=== PATIENT | female | born 1975 | race Caucasian/White ===

== ENCOUNTER → 2019-01-01 | Outpatient (CLI) | payer MEDICARE ==
--- NOTE | 2019-01-01 09:54 | Diagnostic Imaging Report ---
EXAM: US ABDOMEN COMPLETE DATE: 01/01/2019 8:42 AM INDICATION: Abdominal pain COMPARISON: None TECHNIQUE: Transverse and longitudinal berry scale and color doppler sonographic images of the upper abdomen were obtained. FINDINGS: There is no evidence of fluid or masses seen in the area of clinical concern in the right lower quadrant. LIVER 14.6 cm in the right midclavicular line. Mildly increased echogenicity of the liver with normal contour, no masses. SPLEEN 11.2 cm in maximum diameter. Normal echogenicity, no masses. GALLBLADDER No gallbladder wall thickening, distension, stone, or pericholecystic fluid. NEgative reported sonographic Gordon's sign. Gallbladder wall measures 2 mm. BILE DUCTS No intra nor extra-hepatic biliary dilation. Common bile duct measures 4 mm PANCREAS: Visualized portions are normal. RIGHT KIDNEY: 10.0 cm Echogenicity: Normal Collecting System: No hydronephrosis Stones: None Cyst/Mass: None LEFT KIDNEY: 11.5 cm Echogenicity: Normal Collecting System: No hydronephrosis Stones: None Cyst/Mass: None VESSELS: Aorta: Visualized portions are within normal size limits Inferior Vena Cava: Visualized portions are normal Main Portal Vein: 0.8 cm, normal size with hepatopetal flow. FREE FLUID: None IMPRESSION: Unremarkable abdominal ultrasound. Signed by: Elise Morales MD on 01/01/2019 9:51 AM
== END ==
LOC: US 08:36
PROVIDERS: ATTEND Internal Medicine Gastroenterology
DX: R10.13 Epigastric pain (principal); E66.3 Overweight; Z71.3 Dietary counseling and surveillance
CPT/HCPCS: 76700

== ENCOUNTER → 2019-01-14 | Day surgery (SDC) | payer MEDICARE ==
[~2019-01-14] MED LIST: FENTANYL CITRATE/PF 100MCG/2 ML INJ ONE; GABAPENTIN300 MG PO; IBUPROFEN400 MG PO; MIDAZOLAM HCL 2 MG/2 ML VIAL ONE; OMEPRAZOLE40 MG PO; PROPOFOL IV EMULSION 10 MG/ML 50 ML VIAL ONE; TIZANIDINE HCL4 MG PO
--- OUTSIDE RECORDS SUMMARY | 2019-01-14 06:41 | XMS REPORT ---
Author [facility] Address Unknown Phone Unavailable Care Team Providers Care Electrical Controls Assembler Name Role Phone Julianna PALACIOS Unavailable Unavailable Payers Payer Name Policy Type Policy Number Effective Date Expiration Date Problems This patient has no known problems. Allergies, Adverse Reactions, Alerts Allergy Name Allergy Type Status Severity Reaction(s) Onset Date Inactive Date Treating Clinician Comments No Known Allergies DA Active U 2018-09-09 00:00:00 No Known Allergies DA Active U 2018-03-10 00:00:00 No Known Allergies DA Active U 2016-01-24 00:00:00 Medications This patient has no known medications. Results Test Description Test Time Test Comments Text Results Atomic Results Result Comments US ABDOMEN COMPLETE 2019-01-01 09:50:00 [facility] [address] [place] [address] Patient Name: STEVE NOLAND MR #: [id number] : 1975 Age/Sex: 43/F Req #: [id number] Adm Physician: Ordered by: NOREEN PALACIOS MD Report #: [id number] Location: US Room/Bed: Procedure: [id number] US/US ABDOMEN COMPLETE Exam Date: 01/01/19 Exam Time: 0855 REPORT STATUS: Signed EXAM: US ABDOMEN COMPLETE DATE: 01/01/2019 8:42 AM INDICATION: Abdominal pain COMPARISON: None TECHNIQUE: Transverse and longitudinal berry scale and color doppler sonographic images of the upper abdomen were obtained. FINDINGS: There is no evidence of fluid or masses seen in the area of clinical concern in the right lower quadrant. LIVER 14.6 cm in the right midclavicular line. Mildly increased echogenicity of the liver with normal contour, no masses. SPLEEN 11.2 cm in maximum diameter. Normal echogenicity, no masses. GALLBLADDER No gallbladder wall thickening, distension, stone, or pericholecystic fluid. NEgative reported sonographic Gordon's sign. Gallbladder wall measures 2 mm. BILE DUCTS No intra nor extra-hepatic biliary dilation. Common bile duct measures 4 mm PANCREAS: Visualized portions are normal. RIGHT KIDNEY: 10.0 cm Echogenicity: Normal Collecting System: No hydronephrosis Stones: None Cyst/Mass: None LEFT KIDNEY: 11.5 cm Echogenicity: Normal Collecting System: No hydronephrosis Stones: None Cyst/Mass: None VESSELS: Aorta: Visualized portions are within normal size limits Inferior Vena Cava: Visualized portions are normal Main Portal Vein: 0.8 cm, normal size with hepatopetal flow. FREE FLUID: None IMPRESSION: Unremarkable abdominal ultrasound. Signed by: Bon Rouse MD on 01/01/2019 9:51 AM Dictated By: BON ROUSE MD 0 Transcribed By: YADIRA on 01/01/19950 COPY TO: NOREEN PALACIOS MD BASIC METABOLIC PANEL 2018-09-29 23:40:00 SODIUM (test code=NA) 141 mmol/L 136-145 POTASSIUM (test code=K) 3.6 mmol/L 3.5-5.1 CHLORIDE (test code=CL) 105.0 mmol/L 98-107 CARBON DIOXIDE (test code=CO2) 30.0 mmol/L 21-32 ANION GAP (test code=GAP) 9.6 10-20 GLUCOSE (test code=GLU) 122 mg/dL 74-106 BLOOD UREA NITROGEN (test code=BUN) 6 mg/dL 7-18 GLOMERULAR FILTRATION RATE (test code=GFR) > 60 mL/min >=60 Estimated GFR by using Modified MDRD formula.Chronic kidney disease is defined as either kidney damageor GFR <60 mL/min/1.73 m2 for >3 months. CREATININE (test code=CREAT) 0.90 mg/dL 0.55-1.02 Note change in reference range due to change in reagent. BUN/CREATININE RATIO (test code=BUN/CREA) 6.7 10-20 CALCIUM (test code=CA) 8.9 mg/dL 8.5-10.1 HEPATIC FUNCTION [id number] 23:40:00* Test Item Value Reference Range Comments TOTAL PROTEIN (test code=PROT) 7.1 gram/dL 6.4-8.2 ALBUMIN (test code=ALB) 3.9 g/dL 3.4-5.0 GLOBULIN (test code=GLOB) 3.2 gram/dL 2.7-4.2 ALBUMIN/GLOBULIN RATIO (test code=A/G) 1.2 0.75-1.50 BILIRUBIN TOTAL (test code=BILT) 0.80 mg/dL 0.0-1.0 BILIRUBIN DIRECT (test code=BILD) 0.19 mg/dL 0.0-0.20 SGOT/AST (test code=AST) 11 IUnit/L 15-37 SGPT/ALT (test code=ALT) 21 IUnit/L 12-78 ALKALINE PHOSPHATASE TOTAL (test code=ALKP) 66 IUnit/L 45-117 Note change in reference range due to change in reagent. [id number] 23:40:00* Test Item Value Reference Range Comments LIPASE (test code=LIP) 139 U/L 73.0-393.0 HCG SERUM [id number] 23:40:00* Test Item Value Reference Range Comments HCG SERUM QUAL (test code=HCGQL) NEGATIVE NEGATIVE This HCGQL test is NOT applicable for MALE patients.Check with nurse about probable order error.If Tumor Marker Test needed, nurse should order test "HCGTU"(Test #550.93173) BASIC METABOLIC [id number] 23:32:00* Test Item Value Reference Range Comments SODIUM (test code=NA) 141 mmol/L 136-145 POTASSIUM (test code=K) 3.6 mmol/L 3.5-5.1 CHLORIDE (test code=CL) 105.0 mmol/L 98-107 CARBON DIOXIDE (test code=CO2) mmol/L 21-32 ANION GAP (test code=GAP) 10-20 GLUCOSE (test code=GLU) mg/dL 74-106 BLOOD UREA NITROGEN (test code=BUN) mg/dL 7-18 GLOMERULAR FILTRATION RATE (test code=GFR) mL/min >=60 CREATININE (test code=CREAT) mg/dL 0.55-1.02 BUN/CREATININE RATIO (test code=BUN/CREA) 10-20 CALCIUM (test code=CA) mg/dL 8.5-10.1 HEPATIC FUNCTION [id number] 23:32:00* Test Item Value Reference Range Comments TOTAL PROTEIN (test code=PROT) gram/dL 6.4-8.2 ALBUMIN (test code=ALB) g/dL 3.4-5.0 GLOBULIN (test code=GLOB) gram/dL 2.7-4.2 ALBUMIN/GLOBULIN RATIO (test code=A/G) 0.75-1.50 BILIRUBIN TOTAL (test code=BILT) mg/dL 0.0-1.0 BILIRUBIN DIRECT (test code=BILD) mg/dL 0.0-0.20 SGOT/AST (test code=AST) IUnit/L 15-37 SGPT/ALT (test code=ALT) IUnit/L 12-78 ALKALINE PHOSPHATASE TOTAL (test code=ALKP) IUnit/L 45-117 [id number] 23:32:00* Test Item Value Reference Range Comments LIPASE (test code=LIP) U/L 73.0-393.0 HCG SERUM [id number] 23:32:00* Test Item Value Reference Range Comments HCG SERUM QUAL (test code=HCGQL) NEGATIVE NEGATIVE This HCGQL test is NOT applicable for MALE patients.Check with nurse about probable order error.If Tumor Marker Test needed, nurse should order test "HCGTU"(Test #550.05613) BASIC METABOLIC [id number] 23:26:00* Test Item Value Reference Range Comments SODIUM (test code=NA) 141 mmol/L 136-145 POTASSIUM (test code=K) 3.6 mmol/L 3.5-5.1 CHLORIDE (test code=CL) 105.0 mmol/L 98-107 CARBON DIOXIDE (test code=CO2) mmol/L 21-32 ANION GAP (test code=GAP) 10-20 GLUCOSE (test code=GLU) mg/dL 74-106 BLOOD UREA NITROGEN (test code=BUN) mg/dL 7-18 GLOMERULAR FILTRATION RATE (test code=GFR) mL/min >=60 CREATININE (test code=CREAT) mg/dL 0.55-1.02 BUN/CREATININE RATIO (test code=BUN/CREA) 10-20 CALCIUM (test code=CA) mg/dL 8.5-10.1 HEPATIC FUNCTION [id number] 23:26:00* Test Item Value Reference Range Comments TOTAL PROTEIN (test code=PROT) gram/dL 6.4-8.2 ALBUMIN (test code=ALB) g/dL 3.4-5.0 GLOBULIN (test code=GLOB) gram/dL 2.7-4.2 ALBUMIN/GLOBULIN RATIO (test code=A/G) 0.75-1.50 BILIRUBIN TOTAL (test code=BILT) mg/dL 0.0-1.0 BILIRUBIN DIRECT (test code=BILD) mg/dL 0.0-0.20 SGOT/AST (test code=AST) IUnit/L 15-37 SGPT/ALT (test code=ALT) IUnit/L 12-78 ALKALINE PHOSPHATASE TOTAL (test code=ALKP) IUnit/L 45-117 [id number] 23:26:00* Test Item Value Reference Range Comments LIPASE (test code=LIP) U/L 73.0-393.0 HCG SERUM [id number] 23:26:00* Test Item Value Reference Range Comments HCG SERUM QUAL (test code=HCGQL) NEGATIVE URINALYSIS [id number] 23:22:00* Test Item Value Reference Range Comments UA COLOR (test code=COLU) YELLOW YELLOW UA APPEARANCE (test code=APPU) CLEAR CLEAR UA GLUCOSE DIPSTICK (test code=DGLUU) NEGATIVE mg/dL NEGATIVE UA BILIRUBIN DIPSTICK (test code=BILU) NEGATIVE mg/dL NEGATIVE UA KETONE DIPSTICK (test code=KETU) NEGATIVE mg/dL NEGATIVE UA SPECIFIC GRAVITY (test code=SGU) 1.015 1.001-1.035 UA BLOOD DIPSTICK (test code=VERONIQUE) 0.06 mg/dL (1+) mg/dL NEGATIVE UA PH DIPSTICK (test code=FELIPE) 5.0 5.0-8.0 UA PROTEIN DIPSTICK (test code=PROU) NEGATIVE mg/dL NEGATIVE UA UROBILINIOGEN DIPSTICK (test code=URO) Normal mg/dL NEGATIVE UA NITRITE DIPSTICK (test code=SANTHOSH) NEGATIVE NEGATIVE UA LEUKOCYTE ESTERASE W REFLEX (test code=LEUUR) NEGATIVE Lauren/uL NEGATIVE UA WBC (test code=WBCU) 0-5 per HPF 0-5 UA RBC (test code=RBCU) 0-2 #/HPF 0-5 UA EPITHELIAL CELLS (test code=EPIU) FEW per HPF FEW UA BACTERIA (test code=BACU) NONE SEEN #/HPF NONE UA HYALINE CAST (test code=HYALU) 3-5 #/LPF 0-5 UA MUCUS (test code=MUCU) FEW #/LPF FEW Urine Source? Clean CatchCBC W/O [id number] 23:22:00* Test Item Value Reference Range Comments WHITE BLOOD CELL (test code=WBC) 12.7 K/mm3 4.5-12.5 RED BLOOD CELL (test code=RBC) 4.21 mill/mm3 3.7-5.2 HEMOGLOBIN (test code=HGB) 15.2 gram/dL 11.5-15.5 HEMATOCRIT (test code=HCT) 44.8 % 36.0-46.0 MEAN CELL VOLUME (test code=MCV) 106.4 fL 80-98 MEAN CELL HGB (test code=MCH) 36.1 picogram 27.0-33.0 MEAN CELL HGB CONCETRATION (test code=MCHC) 33.9 gram/dL 33.0-36.0 RED CELL DISTRIBUTION WIDTH (test code=RDW) 13.4 % 11.6-16.2 PLATELET COUNT (test code=PLT) 236 K/mm3 150-450 MEAN PLATELET VOLUME (test code=MPV) 8.8 fL 6.7-11.0 URINALYSIS [id number] 23:21:00* Test Item Value Reference Range Comments UA COLOR (test code=COLU) YELLOW YELLOW UA APPEARANCE (test code=APPU) CLEAR CLEAR UA GLUCOSE DIPSTICK (test code=DGLUU) NEGATIVE mg/dL NEGATIVE UA BILIRUBIN DIPSTICK (test code=BILU) NEGATIVE mg/dL NEGATIVE UA KETONE DIPSTICK (test code=KETU) NEGATIVE mg/dL NEGATIVE UA SPECIFIC GRAVITY (test code=SGU) 1.015 1.001-1.035 UA BLOOD DIPSTICK (test code=VERONIQUE) 0.06 mg/dL (1+) mg/dL NEGATIVE UA PH DIPSTICK (test code=FELIPE) 5.0 5.0-8.0 UA PROTEIN DIPSTICK (test code=PROU) NEGATIVE mg/dL NEGATIVE UA UROBILINIOGEN DIPSTICK (test code=URO) Normal mg/dL NEGATIVE UA NITRITE DIPSTICK (test code=SANTHOSH) NEGATIVE NEGATIVE UA LEUKOCYTE ESTERASE W REFLEX (test code=LEUUR) NEGATIVE Lauren/uL NEGATIVE UA WBC (test code=WBCU) per HPF 0-5 UA RBC (test code=RBCU) per HPF 0-5 UA EPITHELIAL CELLS (test code=EPIU) per HPF Few UA BACTERIA (test code=BACU) per HPF NONE Urine Source? Clean CatchCBC W/O [id number] 23:20:00* Test Item Value Reference Range Comments WHITE BLOOD CELL (test code=WBC) K/mm3 4.5-12.5 RED BLOOD CELL (test code=RBC) mill/mm3 3.7-5.2 HEMOGLOBIN (test code=HGB) 15.2 gram/dL 11.5-15.5 HEMATOCRIT (test code=HCT) 44.8 % 36.0-46.0 MEAN CELL VOLUME (test code=MCV) fL 80-98 MEAN CELL HGB (test code=MCH) picogram 27.0-33.0 MEAN CELL HGB CONCETRATION (test code=MCHC) gram/dL 33.0-36.0 RED CELL DISTRIBUTION WIDTH (test code=RDW) % 11.6-16.2 PLATELET COUNT (test code=PLT) K/mm3 150-450 MEAN PLATELET VOLUME (test code=MPV) fL 6.7-11.0 - CT HEAD/BRAIN W/O [id number] 23:15:00 Name: STEVE NOLAND [facility] : 1975 Age/S: 42 / F [address] [facility]: [id number] Loc: [place] [address] Phys: Osmin Long DO Acct: [id number] Dis Date: Status: REG ER PHONE #: [phone] Exam Date: 09/29/2018 2308 FAX #: [phone] Reason: headache EXAMS: CPT CODE: [id number] CT HEAD/BRAIN W/O CONT [id number] CT SCAN OF THE HEAD WITHOUT CONTRAST Dictation Location: N13 CLINICAL HISTORY: Headache R 51 TECHNIQUE: Helical CT was performed from the skull base to the vertex without IV contrast using 5mm slice thicknesses. Exam was performed within 24 hours of the patient's arrival to the facility. Coronal and sagittal images were reconstructed. Exam performed without IV contrast has limited sensitivity for detection of soft tissue mass or inflammation. This exam was performed according to our departmental dose optimization program, which includes automated exposure control, adjustment of the mA and/ or KV according to patient size and/or use of iterative reconstruction technique. DLP 695 mGy*cm Compar juany study December 26, 2015 FINDINGS: The visualized sinuses are clear. The visualized bony structures are normal. There is no eviden ce of epidural, subdural, or intraparenchymal hematoma. Th ere is no evidence of mass, mass effect, fluid collection, hemorrhage, or evolving infarction. IMPRESSION: Normal CT of the hea d without contrast. Electronically Signed by Tori Nye M.D. on at 2815 Reported and signed by: Tori Alcantar CC: Osmin Long DO Technolo gist:NIK OTT, RT(R) CT CTDI: DLP: Trnscb Date/Time: 09/29/2018 (7839) Ashley.[email or web address] Orig Print D/T: S: 09/29/2018 (9659) PAGE 1 Signed Report B-TYPE NATRIURETIC [id number] 21:02:00* Test Item Value Reference Range Comments B-TYPE NATRIURETIC PEPTIDE (test code=BNP) 6.71 pgram/mL 0-100 URINALYSIS [id number] 20:55:00* Test Item Value Reference Range Comments UA COLOR (test code=COLU) Light-Yellow YELLOW UA APPEARANCE (test code=APPU) CLEAR CLEAR UA GLUCOSE DIPSTICK (test code=DGLUU) NEGATIVE mg/dL NEGATIVE UA BILIRUBIN DIPSTICK (test code=BILU) NEGATIVE mg/dL NEGATIVE UA KETONE DIPSTICK (test code=KETU) NEGATIVE mg/dL NEGATIVE UA SPECIFIC GRAVITY (test code=SGU) 1.009 1.001-1.035 UA BLOOD DIPSTICK (test code=VERONIQUE) 0.03 mg/dL (Trace) mg/dL NEGATIVE UA PH DIPSTICK (test code=FELIPE) 5.5 5.0-8.0 UA PROTEIN DIPSTICK (test code=PROU) NEGATIVE mg/dL NEGATIVE UA UROBILINIOGEN DIPSTICK (test code=URO) Normal mg/dL NEGATIVE UA NITRITE DIPSTICK (test code=SANTHOSH) NEGATIVE NEGATIVE UA LEUKOCYTE ESTERASE W REFLEX (test code=LEUUR) NEGATIVE Lauren/uL NEGATIVE UA WBC (test code=WBCU) 0-5 per HPF 0-5 UA RBC (test code=RBCU) 0-2 #/HPF 0-5 UA EPITHELIAL CELLS (test code=EPIU) FEW per HPF FEW UA BACTERIA (test code=BACU) NONE SEEN #/HPF NONE UA MUCUS (test code=MUCU) FEW #/LPF FEW Urine Source? Clean CatchBASIC METABOLIC [id number] 20:34:00* Test Item Value Reference Range Comments SODIUM (test code=NA) 138 mmol/L 136-145 POTASSIUM (test code=K) 3.4 mmol/L 3.5-5.1 CHLORIDE (test code=CL) 101.0 mmol/L 98-107 CARBON DIOXIDE (test code=CO2) 32.0 mmol/L 21-32 ANION GAP (test code=GAP) 8.4 10-20 GLUCOSE (test code=GLU) 85 mg/dL 74-106 BLOOD UREA NITROGEN (test code=BUN) 11 mg/dL 7-18 GLOMERULAR FILTRATION RATE (test code=GFR) > 60 mL/min >=60 Estimated GFR by using Modified MDRD formula.Chronic kidney disease is defined as either kidney damageor GFR <60 mL/min/1.73 m2 for >3 months. CREATININE (test code=CREAT) 0.80 mg/dL 0.55-1.02 Note change in reference range due to change in reagent. BUN/CREATININE RATIO (test code=BUN/CREA) 13.1 10-20 CALCIUM (test code=CA) 9.4 mg/dL 8.5-10.1 HCG SERUM [id number] 20:34:00* Test Item Value Reference Range Comments HCG SERUM QUAL (test code=HCGQL) NEGATIVE NEGATIVE This HCGQL test is NOT applicable for MALE patients.Check with nurse about probable order error.If Tumor Marker Test needed, nurse should order test "HCGTU"(Test #550.54469) [id number] 20:34:00* Test Item Value Reference Range Comments TROPONIN-I (test code=TROPI) <0.015 ng/mL 0-0.045 BASIC METABOLIC [id number] 20:30:00* Test Item Value Reference Range Comments SODIUM (test code=NA) 138 mmol/L 136-145 POTASSIUM (test code=K) 3.4 mmol/L 3.5-5.1 CHLORIDE (test code=CL) 101.0 mmol/L 98-107 CARBON DIOXIDE (test code=CO2) mmol/L 21-32 ANION GAP (test code=GAP) 10-20 GLUCOSE (test code=GLU) mg/dL 74-106 BLOOD UREA NITROGEN (test code=BUN) mg/dL 7-18 GLOMERULAR FILTRATION RATE (test code=GFR) mL/min >=60 CREATININE (test code=CREAT) mg/dL 0.55-1.02 BUN/CREATININE RATIO (test code=BUN/CREA) 10-20 CALCIUM (test code=CA) 9.4 mg/dL 8.5-10.1 HCG SERUM [id number] 20:30:00* Test Item Value Reference Range Comments HCG SERUM QUAL (test code=HCGQL) NEGATIVE NEGATIVE This HCGQL test is NOT applicable for MALE patients.Check with nurse about probable order error.If Tumor Marker Test needed, nurse should order test "HCGTU"(Test #550.60800) [id number] 20:30:00* Test Item Value Reference Range Comments TROPONIN-I (test code=TROPI) ng/mL 0-0.045 BASIC METABOLIC [id number] 20:25:00* Test Item Value Reference Range Comments SODIUM (test code=NA) 138 mmol/L 136-145 POTASSIUM (test code=K) 3.4 mmol/L 3.5-5.1 CHLORIDE (test code=CL) 101.0 mmol/L 98-107 CARBON DIOXIDE (test code=CO2) mmol/L 21-32 ANION GAP (test code=GAP) 10-20 GLUCOSE (test code=GLU) mg/dL 74-106 BLOOD UREA NITROGEN (test code=BUN) mg/dL 7-18 GLOMERULAR FILTRATION RATE (test code=GFR) mL/min >=60 CREATININE (test code=CREAT) mg/dL 0.55-1.02 BUN/CREATININE RATIO (test code=BUN/CREA) 10-20 CALCIUM (test code=CA) 9.4 mg/dL 8.5-10.1 HCG SERUM [id number] 20:25:00* Test Item Value Reference Range Comments HCG SERUM QUAL (test code=HCGQL) NEGATIVE [id number] 20:25:00* Test Item Value Reference Range Comments TROPONIN-I (test code=TROPI) ng/mL 0-0.045 [id number] 20:24:00* Test Item Value Reference Range Comments D-DIMER (test code=DDIMER) 430.00 ng/mLFEU 0-500 Clinical Cut-off value for D- Dimer is 500 ng/mL FEU. Comment: The [employer] D-Dimer assay is intended for use asan aid in the diagnosis of venous thromboembolism (VTE)[deep vein thrombosis (DVT) or pulmonary embolism (PE)].The measurement of D-Dimer should not be used as an aid inthe diagnosis of VTE, in patient with: -Therapeutic dose anticoagulant therapy for >24 hours -Fibrinolytic therapy within previous 7 days -Trauma or surgery within previous 4 weeks -Disseminated malignancies - Aortic aneurysm -Sepsis, severe infections, pneumonia, severe skin infections -Liver cirrhosis - CBC W/O [id number] 20:12:00* Test Item Value Reference Range Comments WHITE BLOOD CELL (test code=WBC) 10.0 K/mm3 4.5-12.5 RED BLOOD CELL (test code=RBC) 4.52 mill/mm3 3.7-5.2 HEMOGLOBIN (test code=HGB) 16.2 gram/dL 11.5-15.5 HEMATOCRIT (test code=HCT) 46.5 % 36.0-46.0 MEAN CELL VOLUME (test code=MCV) 102.9 fL 80-98 MEAN CELL HGB (test code=MCH) 35.8 picogram 27.0-33.0 MEAN CELL HGB CONCETRATION (test code=MCHC) 34.8 gram/dL 33.0-36.0 RED CELL DISTRIBUTION WIDTH (test code=RDW) 12.6 % 11.6-16.2 PLATELET COUNT (test code=PLT) 314 K/mm3 150-450 MEAN PLATELET VOLUME (test code=MPV) 9.1 fL 6.7-11.0 - XR CHEST 1 [id number] 19:51:00 FAX: Nehemias Lux MD [phone] [place]: B St: PRE Name: STEVE TOWNSEND [facility] : [birth year] Age/S: 42/F [address] [facility] Unit #: [id number] Loc: T[place] [address] Phys: Nehemias Lux MD Acct: [id number] Dis Date: Status: PRE ER PHONE #: [phone] Exam Date: 09/09/20181931 FAX #: [phone] Reason: Shortness of Breath EXAMS: CPT CODE: [id number] XR CHEST 1 V 47768 REASON FOR EXAM: Shortness of Breath Exam Order Date: 09/09/2018 7:05 PM Ordering M.D.: Nehemias Lux MD PROCEDURE: - XR CHEST 1 V COMPARISON: 2 view chest x-ray December 26, 2015 FINDINGS: The lungs are clear. There is no pleural effusion or pneumothorax. Pulmo nary vascularity is within normal limits. Cardiomediastinal silhou ette is normal in size for technique. The mediastinal contours are within normal limits. Musculoskeletal structures are within normal limits . The visualized upper abdomen is within normal limits. IMPRESSION: No acute cardiopulmonary process. Electron ically Signed by Rolando Irizarry MD on 09/09/2018 at 1950 Re ported and signed by: Rolando Irizarry MD CC: Nehemias Lux MD Technologist: ALLYSON MATHUR Trnctrd Date/Time/By: 09/09/2018 (1950) : By: [email or web address] Orig Print D/T: S: 09/09/2018 (1954) PAGE 1 Signed Report - US TRANSVAGINAL NON [id number] 09:06:00 Name: STEVE NOLAND [facility] : 1975 Age/S: 42 / F [address] [place] [address] Unit #: [id number] Loc: [place] [address] Phys: Michael Banks MD Acct: [id number] Dis Date: Status: REG CLI PHONE #: [phone] Exam Date: 04/02/2018841 FAX #: [phone] Reason: N94.9 PELVIC PAIN, N39.0 UTI EXAMS: CPT CODE: [id number] [place] [address] Clinical Indication: 42-year-old female with pelvic pain, history of tubal ligation; Comparison: None US PELVIS Technique: Grayscale, color and Doppler transabdominal and transvaginal imaging of the pelvis was performed with standard technique. FINDINGS: TRANSABDOMINAL PELVIC ULTRASOUND: UTERUS: The transabdominal pelvic ultrasound evaluation of the uterus shows that the anteverted uterus measures 8.7 x 4.5 x 6.4 cm in size. A 1.9 x 1.9 x 2.1 cm hypoechoic focus is noted near likely representing a fibroid. Additional probable hypoechoic fibroid noted measuring 1.9 x 1.5 x 2.1 cm. Endometrial stripe measures 5 mm in thickness. OVARIES: The ovaries are not well seen on the transabdominal portion of the exam, related to bowel gas in the pelvis. OTHER FINDINGS: The transabdominal sonographic images show small free fluid in the pelvic cul-de-sac. IMPRESSION: 1. Limited assessment of the uterine parenchyma and ovaries on the transabdominal pelvic ultrasound, related to bowel gas in the pelvis. This necessitated a pelvic transvaginal ultrasound. Recommend correlation with the transvaginal pelvic ultrasound report. TRANSVAGINAL PELVIC ULTRASOUND: UTERUS: The pelvic transvaginal sonographic images show normal uterine contour and morphology. There is heterogeneous parenchymal echotexture. The endometrial stripe measures 6 mm in thickness. Hypoechoic probable fundal fibroid noted measuring 1.7 x 1.5 x 1.9 cm. Additional right-s ided hypoechoic probable fibroid noted measuring 1.9 x 1.1 x 1.2 cm. Le ft-sided hypoechoic probable fibroid noted measuring 1.6 x 1.5 x 1.2 cm. OVARIES: The transvaginal pelvic sonographic images show that the right ovary measures 2.2 x 1.2 x 2.3 cm and the left ovary measures 3.3 x 2.3 x 2.3 cm. A simple appearing 1.5 x 1.7 x 1.6 cm left ovarian cyst is noted. There is normal ovarian contour and morphology. There are no adnexal masses. PAGE 1 Signed Report (CONTINUED) Name: STEVE NOLAND [facility] : 1975 Age/S: 42 / F [address] [place] [address] Unit #: [id number] Loc: [place] [address] Phys: Michael Banks MD Acct: [id number] Dis Date: Status: REG CLI PHONE #: [phone] Exam Date: 04/02/2018 0842 FAX #: [phone] Reason: N94.9 PELVIC PAIN, N39.0 UTI EXAMS: CPT CODE: [id number] [place] [address] < Continued> The limited Doppler images show normal bilateral ovarian blood flow. OTHER FINDINGS: The transvaginal sonographic images show small free fluid in the pelvic cul-de-sac. If there is further concern, followup pelvic sonography or MRI of the pelvis may be performed. IMPRESSION: 1. Fibroid uterus. 2. Simple appearing left ovarian cyst. SL: [id number] at 0906 Reported and signed by: Marisol Underwood M.D. CC: Michael Banks MD Technologist: Dayna Salguero RDMS(Linda)(OB) Trnscb Date/Time: 04/02/2018 (905) [id number] Orig Print D/T: S: 04/02/2018 (908) Probe: [id number] PAGE 2 Signed Report - US PELVIS COMPLETE 2018-04-02 09:06:00 Name: STEVE NOLAND [facility] : 1975 Age/S: 42 / F [address] [place] [address] Bl Unit #: [id number] Loc: [place] [address] Phys: Michael Banks MD Acct: [id number] Dis Date: Status: REG CLI PHONE #: [phone] Exam Date: 04/02/2018 08 FAX #: [phone] Reason: N94.9 PELVIC PAIN, N39.0 UTI EXAMS: CPT CODE: [id number] US PELVIS COMPLETE [id number] Clinical Indication: 42-year-old female with pelvic pain, history of tubal ligation; Comparison: None US PELVIS Technique: Grayscale, color and Doppler transabdominal and transvaginal imaging of the pelvis was performed with standard technique. FINDINGS: TRANSABDOMINAL PELVIC ULTRASOUND: UTERUS: The transabdominal pelvic ultrasound evaluation of the uterus shows that the anteverted uterus measures 8.7 x 4.5 x 6.4 cm in size. A 1.9 x 1.9 x 2.1 cm hypoechoic focus is noted near likely representing a fibroid. Additional probable hypoechoic fibroid noted measuring 1.9 x 1.5 x 2.1 cm. Endometrial stripe measures 5 mm in thickness. OVARIES: The ovaries are not well seen on the transabdominal portion of the exam, related to bowel gas in the pelvis. OTHER FINDINGS: The transabdominal sonographic images show small free fluid in the pelvic cul-de-sac. IMPRESSION: 1. Limited assessment of the uterine parenchyma and ovaries on the transabdominal pelvic ultrasound, related to bowel gas in the pelvis. This necessitated a pelvic transvaginal ultrasound. Recommend correlation with the transvaginal pelvic ultrasound report. TRANSVAGINAL PELVIC ULTRASOUND: UTERUS: The pelvic transvaginal sonographic images show normal uterine contour and morphology. There is heterogeneous parenchymal echotexture. The endometrial stripe measures 6 mm in thickness. Hypoechoic probable fundal fibroid noted measuring 1.7 x 1.5 x 1.9 cm. Additional right-s ided hypoechoic probable fibroid noted measuring 1.9 x 1.1 x 1.2 cm. Le ft-sided hypoechoic probable fibroid noted measuring 1.6 x 1.5 x 1.2 cm. OVARIES: The transvaginal pelvic sonographic images show that the right ovary measures 2.2 x 1.2 x 2.3 cm and the left ovary measures 3.3 x 2.3 x 2.3 cm. A simple appearing 1.5 x 1.7 x 1.6 cm left ovarian cyst is noted. There is normal ovarian contour and morphology. There are no adnexal masses. PAGE 1 Signed Report (CONTINUED) Name: STEVE NOLAND [facility] : 1975 Age/S: 42 / F [address] [place] [address] Unit #: [id number] Loc: [facility] [place] [address] Phys: Michael Banks MD Acct: [id number] Dis Date: Status: REG CLI PHONE #: [phone] Exam Date: 04/02/2018 0842 FAX #: [phone] Reason: N94.9 PELVIC PAIN, N39.0 UTI EXAMS: CPT CODE: [id number] US PELVIS COMPLETE [id number] < Continued> The limited Doppler images show normal bilateral ovarian blood flow. OTHER FINDINGS: The transvaginal sonographic images show small free fluid in the pelvic cul-de-sac. If there is further concern, followup pelvic sonography or MRI of the pelvis may be performed. IMPRESSION: 1. Fibroid uterus. 2. Simple appearing left ovarian cyst. SL: [id number] at 0906 Reported and signed by: Marisol Underwood M.D. CC: Michael Banks MD Technologist: Dayna Salguero RDMS(A)(OB) Trnscb Date/Time: 04/02/2018 (905) [id number] Orig Print D/T: S: 04/02/2018 (908) Probe: PAGE 2 Signed Report
[2019-01-14 10:15] VITALS: BP 115/73
== END | disposition home or self-care (01) ==
LOC: OR 06:38
PROVIDERS: ATTEND Internal Medicine Gastroenterology
DX: K29.50 Unspecified chronic gastritis without bleeding (principal); Z71.3 Dietary counseling and surveillance; E66.3 Overweight; F41.9 Anxiety disorder, unspecified; F17.290 Nicotine dependence, other tobacco product, uncomplicated; Z68.25 Body mass index [BMI] 25.0-25.9, adult
CPT/HCPCS: 43239; 81025; 88305; 88312; J2250; J2704; J3010